=== PATIENT | male | born 1990 | race Caucasian/White ===

== ENCOUNTER 2016-12-25 14:15 | Emergency (ER) | payer OTHER ==
[~2016-12-25] VITALS: Ht 177.8 cm; Wt 65.4 kg
[2016-12-25 14:20] VITALS: BP 116/89
== END 2016-12-25 17:28 | disposition home or self-care (01) ==
LOC: ED 14:15
DX: L03.114 Cellulitis of left upper limb (principal)

== ENCOUNTER 2017-01-17 05:59 | Emergency (ER) | payer OTHER ==
[~2017-01-17] VITALS: Ht 180.3 cm; Wt 66.7 kg
[2017-01-17 10:04] VITALS: BP 133/81
== END 2017-01-17 10:04 | disposition short-term general hospital (02) ==
LOC: ED 05:59
DX: J36 Peritonsillar abscess (principal); K12.2 Cellulitis and abscess of mouth
CPT/HCPCS: 86308; J0696; J1100; J2405; J3010; Q9967